=== PATIENT | female | born 1990 | race Two or more races ===

== ENCOUNTER 2020-06-11 09:55 | Inpatient (IN) | payer MEDICAID ==
[~2020-06-11] VITALS: Ht 154.9 cm; Wt 77.1 kg
[2020-06-11] MEDS ORDERED: PREN-96 PO (10:35)
[2020-06-11] MEDS ORDERED: WITCH HAZEL-GLYCERIN PAD TOP PRN (11:15)
[2020-06-11] MEDS ORDERED: LACTATED RINGER'S 1,000 ML IV SCH (11:15)
[2020-06-11] MEDS ORDERED: PROMETHAZINE HCL 25 MG/ML 1ML IV PRN (11:15)
[2020-06-11] MEDS ORDERED: DERMOPLAST 60ML BOTTLE TOP PRN (11:15)
[2020-06-11] MEDS ORDERED: PHISODERM TOP SOLN 240ML BTL TOP PRN (11:15)
[2020-06-11] MEDS ORDERED: NALBUPHINE HCL 10 MG/1ml INJECTION IV PRN (11:15)
[2020-06-11] MEDS ORDERED: LIDOCAINE 2%HCL (LOCAL ANESTH.) INJ 20ML MDV IJ ONE (11:15)
[2020-06-11] MEDS ORDERED: PENICILLIN G POT 5MIL/D5 50ML 50 ML IV ONE (11:15)
[2020-06-11] MEDS ORDERED: BUTORPHANOL TARTRATE 2 MG/1 ML VIAL IV PRN (12:30)
[2020-06-11 12:37] LABS: Basophils # (auto) 0.1 10 ^3/uL (0-0.2); Basophils % (auto) 0.5 % (0.0-2.0); Eosinophils # (auto) 0 10 ^3/uL (0-0.8); Hematocrit 41.9 % (36.0-46.0); Hemoglobin 14.2 g/dL (12.2-16.2); Lymphocytes # (auto) 1.6 10 ^3/uL (0.4-5.4); Lymphocytes % (auto) 11.2 % (10.0-50.0); Mean Corpuscular Hemoglobin 31.3 pg (28.0-32.0); Mean Corpuscular Hgb Conc. 33.9 g/dL (32.0-36.0); Mean Corpuscular Volume 92.1 fL (80.0-100.0); Monocytes # (auto) 0.5 10 ^3/uL (0-1.3); Monocytes % (auto) 3.2 % (0.0-12.0); Neutrophils # (auto) 12.5 10 ^3/uL (1.6-8.6); Neutrophils % (auto) 85.1 % (37.0-80.0); Nucleated Red Blood Cells % 0.1 %; Platelet Count (auto) 247 10^3/uL (140-450); Red Blood Cells 4.55 10^6/uL (4.0-5.20); Red Cell Distribution Width 13.5 % (11.8-14.3); White Blood Cell 14.7 10^3/uL (4.4-10.8)
[2020-06-11 12:39] LABS: Urine Bacteria NONE SEEN /hpf (None Seen); Urine Blood Negative /uL (Negative); Urine Specific Gravity 1.025 (1.001-1.035); Urine WBC 1 /hpf (0 - 5)
[2020-06-11] MEDS ORDERED: LACT. RINGERS/OXYTOCIN 20UNITS 1,000 ML IV ONE (12:45)
[2020-06-11 12:53] LABS: INR 0.92 (0.9-1.15); Partial Thromboplastin Time 26.5 sec (23.0-31.2)
[2020-06-11 12:54] LABS: Albumin 2.8 g/dL (3.4-5.0); Calcium 8.8 mg/dL (8.5-10.1); Potassium 3.4 mmol/L (3.5-5.1)
[2020-06-11 12:57] LABS: BUN/Creatinine Ratio 19.7; Bilirubin, Total 0.5 mg/dL (0.2-1.0); Total Protein 6.9 g/dL (6.4-8.2)
[2020-06-11 12:59] LABS: Alcohol, Urine < 3.0 mg/dL (0-10); Amphetamine Screen, Urine NEGATIVE (NEGATIVE); Barbiturate Scree,Urine NEGATIVE (NEGATIVE); Benzodiazephine Screen, Urine NEGATIVE (NEGATIVE); Cannabinoid Screen, Urine NEGATIVE (NEGATIVE); Cocaine Screen, Urine NEGATIVE (NEGATIVE); Opiate Scree,Urine NEGATIVE (NEGATIVE); Phencyclidine Screen, Urine NEGATIVE (NEGATIVE)
[2020-06-11] MEDS: IBUPROFEN 600 MG TAB PO PRN ×3 (13:42→21:04)
[2020-06-11 15:00] VITALS: BP 123/63
[2020-06-11] MEDS ORDERED: PENICILLIN G POTASSIUM 2,500,000 UNITS in D5W 5% 50 ML IV SCH (15:15)
--- NOTE | 2020-06-11 16:07 | NUR ---
Ambulation: Patient OOB with standby assistance by RN. Patient ambulated to bathroom with steady gait. Patient able to void without difficulty. Pericare teaching provided with returned demonstration by patient. Clean gown provided and bed linen changed. Patient ambulated back to bed with steady gait and no distress noted.
[2020-06-11 18:30] VITALS: BP 95/52
[2020-06-11 23:00] VITALS: BP 102/56
[2020-06-12] MEDS: IBUPROFEN 600 MG TAB PO PRN ×3 (00:21→08:00)
--- NOTE | 2020-06-12 00:25 | NUR ---
IV removal IV DC'd with sterile technique, catheter fully intact. Pressure dressing applied to site. Patient tolerated procedure well. Discharged with aftercare instructions per MD. NOTE:
[2020-06-12 03:00] VITALS: BP 96/55
[2020-06-12 07:00] VITALS: BP 97/52
[2020-06-12 15:00] VITALS: BP 136/80
--- NOTE | 2020-06-12 16:10 | NUR ---
dr saeed made aware of hospitalist consult was done and ok to go home per her point of view. per dr saeed wait for network strategist to discharge her home.
--- NOTE | 2020-06-12 16:26 | NUR ---
FOB AT BEDSIDE ENCOURAGING MOTHER TO LEAVE AMA. EDUCATED MOM IN [place] REGARDING IMPORTANCE OF ASSESSMENT AND DISCHARGE BY DOCTOR, EMPHASIZED THE IMPORTANCE OF HER HEALTH WHILE TAKING CARE OF HER . Patient encouraged to stay for further treatment/stabilization. Patient advised of the risks and benefits of leaving AMA. Patient verbalized understanding.
--- NOTE | 2020-06-12 16:31 | NUR ---
Es, Rigging Engineer, returns call to [facility], performs phone consult with patient. Patient expresses desire to leave hospital at this time against medical advice. Es discusses the risks of leaving AMA and the benefits of continued care in the hospital, discusses reasons for transfer to higher level of care. Pt verbalizes understanding and states she "feels fine and just wants to go home". FOB at bedside, standing directly in front of patient, yelling "The doctors will not be giving my any more medications. We are not going to mario any papers and I do not want to here another word about anything else. We are leaving." Es recommends call to CPS, states patient cannot be held.
--- NOTE | 2020-06-12 16:39 | NUR ---
dr saeed given report on the patient wants to sign AMA and orders received to discharge patient home if ok with health care social worker.
--- NOTE | 2020-06-12 17:00 | NUR ---
Discharge: Discharge instructions given to mother of baby as ordered. Copies of and hearing screening, along with vaccination record given to mother. Mother encouraged to follow up with [facility] of choice and to give envelope with infants information to tipple repairer at 1st office visit. All questions and concerns addressed. Mother of baby verbalized understanding and agreed to comply. Mother of baby encouraged to prepare for departure and notify RN ready to leave room for ID band removal/verification and car seat check.
[2020-06-12 18:06] VITALS: BP 104/74
--- NOTE | 2020-06-12 18:06 | NUR ---
Discharge: Patient taken to vehicle via wheelchair with all personal belongings, accompanied by staff and family member. No distress noted at time of departure, no adverse changes in status since initial assessment.
[2020-06-14 06:06] LABS: RPR Non Reactive (Non Reactive)
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
== END 2020-06-12 18:06 | disposition home or self-care (01) | DRG 560 ==
LOC: LDRP 09:55 → OBSVTOIN 11:10 → LDRP 13:16
PROVIDERS: ADMIT Specialist; ATTEND Specialist
PROC: 10E0XZZ Delivery of Products of Conception, External Approach (ICD-10-PCS; principal; 2020-06-11)
PROC: 10907ZC Drainage of Amniotic Fluid, Therapeutic from Products of Conception, Via Natural or Artificial Opening (ICD-10-PCS; 2020-06-11)
DX: O98.52 Other viral diseases complicating childbirth (principal); O99.52 Diseases of the respiratory system complicating childbirth; U07.1 COVID-19; J12.89 Other viral pneumonia; Z3A.38 38 weeks gestation of pregnancy; Z37.0 Single live birth
CPT/HCPCS: 36415; 59409; 80053; 80307; 81001; 85025; 85610; 85730; 86592; 86850; 86900; 86901; 87426; 96360; 96365; G0378; J2540; J2590; J7060